=== PATIENT | female | born 1965 | race Caucasian/White ===

== ENCOUNTER 2021-11-09 17:51 | Emergency (ER) | payer MEDICARE, OTHER ==
[~2021-11-09] VITALS: Ht 170.2 cm; Wt 78.0 kg
[2021-11-09] MEDS ORDERED: ALBUTEROL (0.083%) 2.5MG/3ML NEB HHN ONE (22:15)
[2021-11-09] MEDS ORDERED: IPRATROPIUM BROMIDE (0.02%) 0.5MG/2.5ML NEB HHN ONE (22:15)
[2021-11-09 23:52] VITALS: BP 135/85
[2021-11-09] MEDS ORDERED: IPRATROPIUM BROMIDE (0.02%) 0.5MG/2.5ML NEB ONE (23:54)
[2021-11-09] MEDS ORDERED: ALBUTEROL (0.083%) 2.5MG/3ML NEB ONE (23:54)
== END 2021-11-10 03:10 | disposition home or self-care (01) ==
LOC: ER 17:51
DX: J45.901 Unspecified asthma with (acute) exacerbation (principal); Z88.0 Allergy status to penicillin; Z88.6 Allergy status to analgesic agent; Z20.822 Contact with and (suspected) exposure to COVID-19
CPT/HCPCS: 71045; 87426; 94640; 99283; 99284